=== PATIENT | male | born 1970 | race Caucasian/White ===

== ENCOUNTER 2019-08-23 14:31 | Outpatient (CLI) | payer OTHER, SELFPAY ==
--- NOTE | ~2019-08-23 | XR_ITS ---
EXAMINATION: XR chest 2V DATE: 08/23/2019 14:48 INDICATION: Cough TECHNIQUE: PA and lateral views of the chest are obtained. COMPARISON: 04/17/2019 FINDINGS: The lungs are free of acute opacities. There is no pleural effusion or pneumothorax. The ca rdiomediastinal silhouette is normal. There is mild thoracic spondylosis. IMPRESSION: 1. No acute cardiopulmonary abnormality. Reviewed, dictated and finalized at location A.
== END 2019-08-23 14:32 | disposition home or self-care (01) ==
LOC: ANHIMG 14:39
PROVIDERS: PCP Family Medicine; Visit Provider Nurse Practitioner Family
DX: R05 Cough (principal)
CPT/HCPCS: 71046

== ENCOUNTER → 2020-08-12 04:13 | Outpatient (CLI) | payer OTHER, SELFPAY ==
[2020-08-12 19:03] LABS: SARS-CoV-2 RNA PCR Negative
== END ==
PROVIDERS: PCP Family Medicine; Visit Provider Internal Medicine Gastroenterology
DX: Z01.812 Encounter for preprocedural laboratory examination (principal); Z20.822 Contact with and (suspected) exposure to COVID-19
CPT/HCPCS: C9803; U0003; U0005

== ENCOUNTER 2020-08-15 01:41 | Day surgery (SDC) | payer OTHER, SELFPAY ==
[2020-08-05 13:47] VITALS: BMI 28.4
[2020-08-15 09:33] VITALS: BP 131/98; PULSE 83; RESP 18; TEMP 36.2; O2SAT 96
--- NOTE | 2020-08-15 09:41 | WPDANESEPPF ---
Anes - Initial Pre Proc Eval Procedure: Operation Date: 08/15/20 10:45 Proposed Procedures p Screening Colonoscopy - Jules Mcknight MD Date/Time: 08/15/20 09:41 Surgeon: Jules Mcknight MD Pre Op Diagnosis: family hx of colon CA Patient Data Age: 50 Gender: M Height: 6 ft Weight: 94.9 kg Last Vital Signs Temp 36.2 C L 08/15/20 09:33 Pulse 83 08/15/20 09:33 Resp 18 08/15/20 09:33 BP 131/98 H 08/15/20 09:33 Pulse Ox 96 08/15/20 09:33 Allergies Allergy/AdvReac Type Severity Reaction Status Date / Time [id number] Reductase Allergy Severe Other Verified 08/15/20 09:30 Inhibitor prochlorperazine Allergy Mild RASH Verified 08/15/20 09:30 NITRATE Allergy Severe unkno Uncoded 08/15/20 09:30 Home Medications Medication Instructions Recorded Confirmed Type aspirin 81 mg tablet,delayed 81 mg PO DAILY 04/17/19 08/05/20 History release metoprolol succinate 50 mg 50 mg PO DAILY 04/17/19 08/05/20 History tablet,extended release 24 hr rosuvastatin 5 mg tablet 5 mg PO 3XW tablet 04/17/19 08/05/20 History sildenafil 100 mg tablet 100 mg PO DAILY PRN #10 tablet 04/17/19 08/05/20 Rx ramipril 5 mg capsule See Rx Instructions .ROUTE 05/08/20 08/05/20 Rx .COMPLEX #180 capsule colestipol 1 gram tablet See Rx Instructions .ROUTE 05/19/20 08/05/20 Rx .COMPLEX #180 tablet azelastine 137 mcg (0.1 %) nasal 137 mcg NASAL Q12H #30 ml 05/21/20 08/05/20 Rx spray aerosol atomoxetine 80 mg capsule 80 mg PO DAILY #90 cap 06/10/20 08/05/20 Rx esomeprazole magnesium 20 mg 20 mg PO DAILY #90 cap 06/10/20 08/05/20 Rx capsule,delayed release gabapentin 100 mg capsule 100 mg PO TID #30 cap 06/10/20 08/05/20 Rx mycophenolate mofetil 500 mg tablet 1,000 mg PO Q12H tablet 06/10/20 08/05/20 History tizanidine 4 mg tablet 4 mg PO TID PRN #30 tablet 06/10/20 08/05/20 Rx blood sugar diagnostic #100 ea 06/27/20 06/27/20 Rx blood-glucose meter #1 ea 06/27/20 06/27/20 Rx lancets #100 ea 06/27/20 06/27/20 Rx metformin 500 mg tablet,extended 500 mg PO DAILY #90 tablet 06/27/20 08/05/20 Rx release 24 hr paroxetine HCl 10 mg PO DAILY 08/05/20 08/05/20 History bupropion HCl 300 mg 24 hr tablet, 300 mg PO QAM #90 tablet 08/15/20 Rx extended release Patient hx anesthesia problems: none Family hx anesthesia problems: none PMFSH Past Medical History Medical History Benign hypertension BMI 30.0-30.9,adult CAD (coronary artery disease) Diabetes GERD (gastroesophageal reflux disease) Mixed hyperlipidemia Surgical History Surgical History Stented coronary artery Family History Family History Mother Hypertension Family history of elevated blood lipids Father Family history of elevated blood lipids Sibling Family history of elevated blood lipids Grandparent Cerebrovascular accident Other Carcinoma of colon Family history of cardiovascular disease Family history of coronary artery disease Social History Social History Smoking packs per day: 0.5 Smoking cigarettes per day: 10.0 Years smoked: 10 Smoking pack-years: 5.00 Smoking status: Former smoker Tobacco type: cigarettes Alcohol intake: current Drinks per week: 5 Substance use: never Living arrangements: with family Spiritual care concerns: No Anes - Eval Final PreProcedure Day of Procedure 08/15/20 09:41 Patient weight: overweight Heart: regular rate and rhythm Lungs: clear to auscultation Airway: Mallampati scale class II Neurological: alert and oriented Last oral intake: >/= 8 hours ASA classification: III Emergent: no Anesthetic plan: proceed Anesthesia type and monitoring: general GIVS and standard monitoring Informed Consent: The patient's
[2020-08-15] MEDS: LACTATED RINGERS 1,000 ML 150 ML IV CONT (09:43)
[2020-08-15 09:50] LABS: Glucose Point of Care 98 (65-105)
--- NOTE | 2020-08-15 10:15 | PM.HPGS ---
History of Present Illness History of Present Illness Consent: Risks, benefits, and alternatives have been discussed and questions answered. Patient agrees to proceed with procedure. Chief complaint: family hx of colon CA Narrative: Nikhil Beavers is a 50 year old male with several family members with colon cancer, he is getting his colonoscopies every 5 years and he is due to have another one (never had polyps) Review of Systems Constitutional: Constitutional: Denies headache(s) and Denies weakness Eyes: Eyes: Denies blurry vision ENT: Reports Normal hearing present, Denies headache(s) and Denies neck pain Cardiovascular: Cardiovascular: Denies chest pain and Denies dyspnea Respiratory: Respiratory: Denies dyspnea Gastrointestinal: Gastrointestinal: Reports no additional gastrointestinal complaints Genitourinary: Genitourinary: Denies dysuria Musculoskeletal: Musculoskeletal: Denies neck pain Integumentary/Breasts: Skin/Breast: Denies dry skin Neurologic: Reports Normal hearing present, Denies headache(s) and Denies weakness Psychiatric: Psychiatric: Denies anxiety Endocrine: Endocrine: Denies change in body appearance Hematologic/Lymphatic: Hematologic/Lymphatic: Denies easy bleeding Allergic/Immunologic: Allergic/Immunologic: Denies urticaria PMFSH Past Medical History Medical History Benign hypertension BMI 30.0-30.9,adult CAD (coronary artery disease) Diabetes GERD (gastroesophageal reflux disease) Mixed hyperlipidemia Surgical History Surgical History Stented coronary artery Family History Family History Mother Hypertension Family history of elevated blood lipids Father Family history of elevated blood lipids Sibling Family history of elevated blood lipids Grandparent Cerebrovascular accident Other Carcinoma of colon Family history of cardiovascular disease Family history of coronary artery disease Social History Social History Smoking packs per day: 0.5 Smoking cigarettes per day: 10.0 Years smoked: 10 Smoking pack-years: 5.00 Smoking status: Former smoker Tobacco type: cigarettes Alcohol intake: current Drinks per week: 5 Substance use: never Living arrangements: with family Spiritual care concerns: No Meds Home Medications and Allergies Home Medications Medication Instructions Recorded Confirmed Type aspirin 81 mg tablet,delayed 81 mg PO DAILY 04/17/19 08/05/20 History release metoprolol succinate 50 mg 50 mg PO DAILY 04/17/19 08/05/20 History tablet,extended release 24 hr rosuvastatin 5 mg tablet 5 mg PO 3XW tablet 04/17/19 08/05/20 History sildenafil 100 mg tablet 100 mg PO DAILY PRN #10 tablet 04/17/19 08/05/20 Rx ramipril 5 mg capsule See Rx Instructions .ROUTE 05/08/20 08/05/20 Rx .COMPLEX #180 capsule colestipol 1 gram tablet See Rx Instructions .ROUTE 05/19/20 08/05/20 Rx .COMPLEX #180 tablet azelastine 137 mcg (0.1 %) nasal 137 mcg NASAL Q12H #30 ml 05/21/20 08/05/20 Rx spray aerosol atomoxetine 80 mg capsule 80 mg PO DAILY #90 cap 06/10/20 08/05/20 Rx esomeprazole magnesium 20 mg 20 mg PO DAILY #90 cap 06/10/20 08/05/20 Rx capsule,delayed release gabapentin 100 mg capsule 100 mg PO TID #30 cap 06/10/20 08/05/20 Rx mycophenolate mofetil 500 mg tablet 1,000 mg PO Q12H tablet 06/10/20 08/05/20 History tizanidine 4 mg tablet 4 mg PO TID PRN #30 tablet 06/10/20 08/05/20 Rx blood sugar diagnostic #100 ea 06/27/20 06/27/20 Rx blood-glucose meter #1 ea 06/27/20 06/27/20 Rx lancets #100 ea 06/27/20 06/27/20 Rx metformin 500 mg tablet,extended 500 mg PO DAILY #90 tablet 06/27/20 08/05/20 Rx release 24 hr paroxetine HCl 10 mg PO DAILY 08/05/20 08/05/20 History bupropion HCl 300 mg 24 hr tablet
[2020-08-15 10:36] VITALS: BP 119/72; PULSE 69; RESP 17; O2SAT 97
[2020-08-15 10:46] VITALS: BP 126/74; PULSE 68; RESP 16; O2SAT 98
[2020-08-15 10:56] VITALS: BP 131/74; PULSE 64; RESP 19; O2SAT 100
== END 2020-08-15 11:09 | disposition home or self-care (01) ==
PROVIDERS: PCP Family Medicine; Visit Provider Internal Medicine Gastroenterology
PROC: 0DJD8ZZ Inspection of Lower Intestinal Tract, Via Natural or Artificial Opening Endoscopic (ICD-10-PCS; CPT 45378; principal; 2020-08-15 10:45)
DX: Z12.11 Encounter for screening for malignant neoplasm of colon (principal); Z80.0 Family history of malignant neoplasm of digestive organs; Z79.82 Long term (current) use of aspirin; Z79.84 Long term (current) use of oral hypoglycemic drugs; I25.10 Atherosclerotic heart disease of native coronary artery without angina pectoris; K21.9 Gastro-esophageal reflux disease without esophagitis; E11.9 Type 2 diabetes mellitus without complications; E78.2 Mixed hyperlipidemia; Z87.891 Personal history of nicotine dependence; Z95.5 Presence of coronary angioplasty implant and graft; K64.8 Other hemorrhoids; I10 Essential (primary) hypertension
CPT/HCPCS: 45378; 82948; C9803; J2704; J7120; U0003; U0005